=== PATIENT | male | born 1975 | race Caucasian/White ===

== ENCOUNTER 2018-01-12 19:30 | Emergency (ER) | payer OTHER ==
--- NOTE | 2018-01-12 19:50 | ER Report ---
History and Physical Time Seen By MD: 19:44 HPI/ROS CHIEF COMPLAINT: indigestion HISTORY OF PRESENT ILLNESS: This is a 42 year old male. He has a history of having indigestion for about 36 hours. He arrived her yesterday, had some Sawant's and had some indigestion afterward. He tried taking Tums, but no relief. Today went to the medics and had some Pepto Bismol and the symptoms are gone. They had seen some changes on EKG in the inferior leads that they were concerned about so wanted him evaluated. He also is being treated with Eliquis for pulmonary embolism from 2 weeks ago. No shortness of breath. No chest pain. No nausea. No fevers or chills. No changes in bowel or bladder. Allergies: Coded Allergies: meperidine (Verified Allergy, Unknown, 01/12/18) Home Meds Reported Medications Gemfibrozil (GEMFIBROZIL) 600 Mg Tablet, 600 MG PO BID 01/12/18 Lisinopril (LISINOPRIL) 40 Mg Tablet, 40 MG PO QDAY, TAB 01/12/18 Amlodipine Besylate (AMLODIPINE BESYLATE) 10 Mg Tablet, 1 TAB PO QDAY, TAB 01/12/18 Apixaban (ELIQUIS) 5 Mg Tablet, 5 MG PO 01/12/18 Reviewed Nurses Notes: Yes Constitutional Vital Sign - Last 24 Hours 01/12/18 01/12/18 01/12/18 01/12/18 19:30 19:44 20:00 20:30 Temp 98.5 Pulse 107 100 94 94 Resp 18 23 21 B/P (MAP) 132/105 (114) 139/97 135/96 (109) Pulse Ox 93 94 95 91 O2 Delivery Room Air 01/12/18 21:41 Pulse 85 Resp 16 B/P (MAP) 132/85 (101) Pulse Ox 92 O2 Delivery Room Air Physical Exam General Appearance: The patient is alert. No acute distress. Eyes: Pupils are equal, round. No pallor, injection or icterus. ENT: Mucous membranes are moist. Respiratory: Lungs are clear to auscultation. Cardiovascular: Regular rate and rhythm. No murmurs, gallops or rubs. Normal capillary refill. No edema. Gastrointestinal: Abdomen is soft and non tender. Nondistended. Normal active bowel sounds. Neurological: Alert and oriented x3. Skin: Warm and dry. No rashes. Musculoskeletal: Full range of motion. No tenderness in palpation of the thoracic and lumbar spine. DIFFERENTIAL DIAGNOSIS: After history and physical exam, differential diagnosis was considered for indigestion symptoms in a patient with pulmonary embolism. Will do a chest pain workup and look for cardiac causes and for recurrent PE, although this sounds like simple indigestion at this time. Medical Decision Making Data Points Result Diagram: 01/12/18201901/12/182019 Laboratory Hematology Test 01/12/18 20:20 Red Blood Count 5.28 M/uL (4.00-5.60) Mean Corpuscular Volume 84.2 fL (80.0-96.0) Mean Corpuscular Hemoglobin 29.4 pg (26.0-33.0) Mean Corpuscular Hemoglobin Concent 34.9 g/dL (32.0-36.0) Red Cell Distribution Width 14.3 % (11.5-14.5) Mean Platelet Volume 7.1 fL (7.2-11.1) Neutrophils (%) (Auto) 45.7 % (39.4-72.5) Lymphocytes (%) (Auto) 39.1 % (17.6-49.6) Monocytes (%) (Auto) 11.8 % (4.1-12.4) Eosinophils (%) (Auto) 3.0 % (0.4-6.7) Basophils (%) (Auto) 0.4 % (0.3-1.4) Nucleated RBC Relative Count (auto) 0.1 /100WBC Neutrophils # (Auto) 2.5 K/uL (2.0-7.4) Lymphocytes # (Auto) 2.2 K/uL (1.3-3.6) Monocytes # (Auto) 0.7 K/uL (0.3-1.0) Eosinophils # (Auto) 0.2 K/uL (0.0-0.5) Basophils # (Auto) 0.0 K/uL (0.0-0.1) Nucleated RBC Absolute Count (auto) 0.00 K/uL D-Dimer Quantitative (PE/DVT) < 0.27 ug/ml (0-0.50) Sodium Level 141 mmol/L (137-145) Potassium Level 3.8 mmol/L (3.5-5.0) Chloride Level 101 mmol/L (98-107) Carbon Dioxide Level 25 mmol/L (22-30) Blood Urea Nitrogen 16 mg/dl (9-21) Creatinine 1.20 mg/dl (0.66-1.25) Glomerular Filtration Rate Calc > 60.0 Random Glucose 110 mg/dl (75-110) Calcium Level 9.8 mg/dl (8.4-10.2) Total Bilirubin 0.8 mg/dl (0.2-1.3) Aspartate Amino Transf (AST/SGOT) 29 U/L (0-35) Alanine Aminotransferase (ALT/SGPT) 36 U/L (0-56) Alkaline Phosphatase 76 U/L (0-126) Troponin I < 0.012 ng/ml Total Protein 7.6 g/dl (6.3-8.2) Albumin 4.6 g/dl (3.5-5.0) Chemistry Test 01/12/18 20:20 White Blood Count 5.5 k/uL (4.5-11.0) Red Blood Count 5.28 M/uL (4.00-5.60) Hemoglobin 15.5 g/dL (14.0-18.0) Hematocrit 44.4 % (42.0-52.0) Mean Corpuscular Volume 84.2 fL (80.0-96.0) Mean Corpuscular Hemoglobin 29.4 pg (26.0-33.0) Mean Corpuscular Hemoglobin Concent 34.9 g/dL (32.0-36.0) Red Cell Distribution Width 14.3 % (11.5-14.5) Platelet Count 355 K/uL (150-450) Mean Platelet Volume 7.1 fL (7.2-11.1) Neutrophils (%) (Auto) 45.7 % (39.4-72.5) Lymphocytes (%) (Auto) 39.1 % (17.6-49.6) Monocytes (%) (Auto) 11.8 % (4.1-12.4) Eosinophils (%) (Auto) 3.0 % (0.4-6.7) Basophils (%) (Auto) 0.4 % (0.3-1.4) Nucleated RBC Relative Count (auto) 0.1 /100WBC Neutrophils # (Auto) 2.5 K/uL (2.0-7.4) Lymphocytes # (Auto) 2.2 K/uL (1.3-3.6) Monocytes # (Auto) 0.7 K/uL (0.3-1.0) Eosinophils # (Auto) 0.2 K/uL (0.0-0.5) Basophils # (Auto) 0.0 K/uL (0.0-0.1) Nucleated RBC Absolute Count (auto) 0.00 K/uL D-Dimer Quantitative (PE/DVT) < 0.27 ug/ml (0-0.50) Glomerular Filtration Rate Calc > 60.0 Calcium Level 9.8 mg/dl (8.4-10.2) Total Bilirubin 0.8 mg/dl (0.2-1.3) Aspartate Amino Transf (AST/SGOT) 29 U/L (0-35) Alanine Aminotransferase (ALT/SGPT) 36 U/L (0-56) Alkaline Phosphatase 76 U/L (0-126) Troponin I < 0.012 ng/ml Total Protein 7.6 g/dl (6.3-8.2) Albumin 4.6 g/dl (3.5-5.0) Coagulation Test 01/12/18 20:20 D-Dimer Quantitative (PE/DVT) < 0.27 ug/ml EKG/Imaging EKG Interpretation 12 lead EKG: Rhythm: normal sinus rhythm, rate 95 [place]: Left axis deviation QRS: normal ST segments: normal Paramedics were concerned about S1 QT 3, this is not present on current EKG Imaging EXAMINATION: Chest 2 Views HISTORY: Indigestion. COMPARISON: None. FINDINGS: Calcified granuloma in the right upper lobe. The lungs are otherwise clear. No focal consolidation or pleural fluid. No pneumothorax. Normal cardiomediastinal silhouette, with normal heart size and pulmonary vascularity. Visualized osseous structures are unremarkable. IMPRESSION: No evidence of acute cardiopulmonary disease. Report Dictated By: Gunner Salcedo MD at 01/12/2018 9:18 PM ED Course/Re-evaluation Clinical Indication for ER IV: Hydration, IV Access ED Course Labs unremarkable, negative troponin and d-dimer. EKG nonspecific, x-ray negative. Patient is able to return to regular duties without restrictions. With did recommend starting some Zantac. Decision to Disposition Date: Jan 12, 2018 Decision to Disposition Time: 21:33 Depart Departure Latest Vital Signs Vital Signs Date Time Temp Pulse Resp B/P (MAP) Pulse Ox O2 Delivery O2 Flow Rate FiO2 01/12/18 21:41 85 16 132/85 (101) 92 Room Air 01/12/18 19:44 98.5 Impression: Primary Impression: Indigestion Condition: Improved Disposition: HOME OR SELF-CARE Patient Instructions: Indigestion (ED) Additional Instructions: You can start using Zantac 150mg twice a day as needed for acid or indigestion. No other changes to medications. No changes to duties. BATOOL EARL MD Jan 12, 2018 19:50
[2018-01-12] MEDS ORDERED: ASPIRIN 81 MG CHEW PO ONE (19:55)
[2018-01-12] MEDS ORDERED: PANTOPRAZOLE SOD 40 MG IV VIAL IVP ONE (19:55)
[2018-01-12] MEDS ORDERED: LISI-374 PO (20:03)
[2018-01-12] MEDS ORDERED: GEMF600T91 PO (20:03)
[2018-01-12] MEDS ORDERED: APIX5TAB PO (20:03)
[2018-01-12] MEDS ORDERED: AMLO-99 PO (20:03)
--- NOTE | 2018-01-12 20:06 | EKG ---
FACILITY: [facility] PATIENT NAME: AL WARREN : [id number] MR: [id number] V: [id number] EXAM DATE: ORDERING PHYSICIAN: BATOOL EARL TECHNOLOGIST: NINFA Test Reason : INDIGESTION Blood Pressure : / mmHG Vent. Rate : 095 BPM Atrial Rate : 095 BPM P-R Int : 168 ms QRS Dur : 102 ms QT Int : 354 ms P-R-T Axes : 031 -41 034 degrees QTc Int : 444 ms Normal sinus rhythm Left axis deviation Abnormal ECG No previous ECGs available Confirmed by GERMAN CHENG ([id number] on 01/14/2018 2:47:55 PM Referred By: Confirmed By:GERMAN CHENG
[2018-01-12 20:33] LABS: PLATELET COUNT, AUTOMATED 355 K/uL (150-450)
--- NOTE | 2018-01-12 21:23 | RADIOLOGY IMAGING REPORT ---
FACILITY: [facility] PATIENT NAME: John Elaine : 1975 MR: [id number] V: [id number] EXAM DATE: ORDERING PHYSICIAN: BATOOL EARL TECHNOLOGIST: [place] [facility] [place] : 1975 Visit/Account:[id number] Date of Sevice: 01/12/2018 EXAMINATION: Chest 2 Views HISTORY: Indigestion. COMPARISON: None. FINDINGS: Calcified granuloma in the right upper lobe. The lungs are otherwise clear. No focal consolidation o r pleural fluid. No pneumothorax. Normal cardiomediastinal silhouette, with normal heart size and pulmonary vascularity. Visualized osseous structures are unremarkable. IMPRESSION: No evidence of acute cardiopulmonary disease. Report Dictated By: Gunner Salcedo MD at 01/12/2018 9:18 PM Report E-Signed By: Gunner Salcedo MD at 01/12/2018 9:19 PM WSN:[id number]
[2018-01-12 21:41] VITALS: BP 132/85
== END 2018-01-12 21:48 | disposition home or self-care (01) ==
LOC: ER 19:41
DX: K30 Functional dyspepsia (principal); R94.31 Abnormal electrocardiogram [ECG] [EKG]
CPT/HCPCS: 71046; 84484; 85025; 85379; 93005; 96374; 99283; C9113; 82040; 82247; 82310; 82374; 82435; 82565; 82947; 84075; 84132; 84155; 84295; 84450; 84460; 84520

== ENCOUNTER → 2018-01-12 | Outpatient (CLI) | payer OTHER ==
[~2018-01-12] MED LIST: AMLO-99 PO; APIX5TAB PO; GEMF600T91 PO; LISI-374 PO
== END ==
LOC: AMB 18:20
PROVIDERS: ATTEND Nurse Practitioner
DX: R12 Heartburn (principal); R94.31 Abnormal electrocardiogram [ECG] [EKG]
CPT/HCPCS: A0425; A0427